=== PATIENT | male | born 1945 | race Caucasian/White ===

== ENCOUNTER 2018-03-28 10:44 | Outpatient (CLI) | payer OTHER | END 2018-03-28 10:54 | disposition home or self-care (01) | LOC: RAD 501 10:44 | DX: J80 Acute respiratory distress syndrome (principal) ==

== ENCOUNTER 2018-11-16 10:30 | Outpatient (CLI) | payer OTHER | END 2018-11-16 10:40 | disposition home or self-care (01) | LOC: RAD 501 10:30 | DX: M15.8 Other polyosteoarthritis (principal); M54.5 Low back pain; M25.442 Effusion, left hand; M25.441 Effusion, right hand ==

== ENCOUNTER 2022-07-30 11:01 | Outpatient (CLI) | payer OTHER | END 2022-07-30 11:05 | disposition home or self-care (01) | LOC: RAD 11:01 | PROVIDERS: ATTEND Ophthalmology | DX: R07.89 Other chest pain (principal) ==

== ENCOUNTER 2024-04-19 09:03 | Outpatient (CLI) | payer OTHER | END 2024-04-19 09:09 | disposition home or self-care (01) | LOC: RAD 09:03 | PROVIDERS: ATTEND Internal Medicine Cardiovascular Disease | DX: I35.1 Nonrheumatic aortic (valve) insufficiency (principal); I11.9 Hypertensive heart disease without heart failure ==